=== PATIENT | male | born 1970 | race Hispanic/Latino ===

== ENCOUNTER 2017-07-13 11:57 | Emergency (ER) | payer BC, OTHER ==
[2017-07-13] MEDS ORDERED: Bacitracin Zinc 1 Packet ONE (12:13)
[2017-07-13] MEDS ORDERED: Adacel (T-DAP) 0.5 ML VIAL ONE (12:14)
== END 2017-07-13 12:33 | disposition home or self-care (01) ==
LOC: BURERS 11:57
DX: S01.01XA Laceration without foreign body of scalp, initial encounter (principal); W20.8XXA Other cause of strike by thrown, projected or falling object, initial encounter
CPT/HCPCS: 12001; 90471; 90715